=== PATIENT | female | born 1965 | race Caucasian/White ===

== ENCOUNTER 2016-12-25 13:17 | Outpatient (CLI) | payer BC, OTHER | END 2016-12-25 13:18 | disposition home or self-care (01) | DX: E04.2 Nontoxic multinodular goiter (principal); E06.3 Autoimmune thyroiditis ==

== ENCOUNTER 2016-12-28 11:21 | Outpatient (CLI) | payer BC, OTHER | END 2016-12-28 11:22 | disposition home or self-care (01) | DX: Z12.31 Encounter for screening mammogram for malignant neoplasm of breast (principal) ==

== ENCOUNTER 2018-01-30 11:37 | Outpatient (CLI) | payer BC, OTHER ==
--- NOTE | 2018-01-31 12:43 | Mammography Report ---
DIGITAL SCREENING MAMMOGRAM: 01/30/2018 CLINICAL INDICATION: A 53-year-old for screening. COMPARISON: 12/2016, 10/2015, 09/2015, 09/2014, 06/2013, 05/2012, 03/2011. TECHNIQUE: Routine CC and MLO projections were obtained of the breasts. FINDINGS: The breasts demonstrate scattered fibroglandular densities bilaterally. Coarse and punctate, typically benign calcifications are present. No suspicious masses, clustered microcalcifications, or regions of architectural distortion are identified. IMPRESSION: BENIGN FINDINGS. RECOMMENDATION: Routine annual screening unless otherwise clinically indicated. BIRADS CATEGORY 2 - BENIGN FINDINGS. STANDARD QUALIFYING STATEMENTS: 1. This examination was reviewed with the aid of Computer-Aided Detection (CAD). 2. A negative or benign imaging report should not delay biopsy if clinically suspicious findings are present. Consider surgical consultation if warranted. More than 5% of cancers are not identified by imaging. 3. Dense breasts may obscure an underlying neoplasm. TD: 01/31/2018 12:42
== END 2018-01-30 11:38 | disposition home or self-care (01) ==
LOC: DI.N 11:37
PROVIDERS: ATTEND Family Medicine
DX: Z12.31 Encounter for screening mammogram for malignant neoplasm of breast (principal)
CPT/HCPCS: 77067

== ENCOUNTER 2018-02-16 11:06 | Outpatient (CLI) | payer BC, OTHER ==
--- NOTE | 2018-02-16 19:15 | Ultrasound Report ---
EXAM: AXILLARY ULTRASOUND EXAM DATE: 02/16/2018 12:07 PM. CLINICAL HISTORY: Mass. COMPARISON: None. TECHNIQUE: Targeted imaging of the right axilla utilizing ultrasound. Certified Meeting Professional static images ac quired and reviewed. FINDINGS: No fluid collections are noted. Normal subcutaneous soft tissues are noted. No concerning m asses are present. Morphologically normal 1 cm lymph node in the right axilla with normal cortex and fatty rafal. This lymph node is in the region of the palpable finding. IMPRESSION: 1. No concerning soft tissue mass or collection. 2. Morphologically normal 1 cm right axillary node of doubtful significance. The lymph node is in the palpable finding. [facility] Referring Provider Line: [phone] SITE ID: [id number]
--- NOTE | 2018-02-17 08:03 | Ultrasound Report ---
EXAM: THYROID ULTRASOUND EXAM DATE: 02/16/2018 12:07 PM. CLINICAL HISTORY: Skye's thyroiditis. COMPARISON: 12/25/2016. TECHNIQUE: Real time sonographic imaging of the thyroid was performed by the nike athlete. Multiple re presentative static images were saved for review. FINDINGS: THYROID GLAND: Right Lobe: 4.9 x 1.1 x 1.5 cm, volume 4.2 cc. Heterogeneous parenchyma. No abnormal blood flow. Right Lobe Nodules: 1. 0.6 x 0.3 x 0.5 cm solid hypoechoic mid right thyroid nodule. No vascularity or microcalcification s. 2. 0.5 x 0.4 x 0.4 cm solid hypoechoic posterior inferior right thyroid nodule. No vascularity or eliseo rocalcifications. 3. 0.5 x 0.4 x 0.5 cm solid hypoechoic medial right mid thyroid nodule. No vascularity or microcalcif ications. Left Lobe: 5.0 x 1.6 x 1.6 cm, volume 6.7 cc. Heterogeneous parenchyma. No abnormal blood flow. Left Lobe Nodules: 1. 0.7 x 0.3 x 0.4 cm hypoechoic mid left thyroid solid nodule. No vascularity or microcalcifications . 2. Lobular 0.9 x 0.3 x 0.4 cm hypoechoic inferior left thyroid nodule. No vascularity or microcalcifi cations. Isthmus: .34 cm AP. Isthmic Nodules: None. LYMPH NODES: No adenopathy demonstrated in the central or lateral compartment. OTHER: None. IMPRESSION: Multiple hypoechoic solid and cystic bilateral thyroid nodules. Heterogeneous thyroid parenchyma in k eeping with Skye's. No concerning thyroid nodule or mass. No pathologic adenopathy. Management recommendations are based on 2015 [place] [employer] Management Guidelines for A dult Patients with Thyroid Nodules and Differentiated Thyroid Cancer. [facility] Referring Provider Line: [phone] SITE ID: [id number]
== END 2018-02-16 11:07 | disposition home or self-care (01) ==
LOC: DI 11:06
PROVIDERS: ATTEND Physician Assistant
DX: E06.3 Autoimmune thyroiditis (principal); D17.1 Benign lipomatous neoplasm of skin and subcutaneous tissue of trunk
CPT/HCPCS: 76536; 76882

== ENCOUNTER 2018-09-26 08:20 | Outpatient (CLI) | payer BC, OTHER ==
[2018-09-26 13:49] LABS: CHOL/HDL RATIO 3.6 (<4.4); CHOLESTEROL 235 mg/dL; HB2 TOTAL 14.5 g/dL; HDL CHOLESTEROL 66 mg/dL; HEMOGLOBIN A1C 0.52 g/dL; HEMOGLOBIN A1C % 5.4 % (4.6-6.2); LDL CHOLESTEROL,CALCULATED 135 mg/dL; VLDL CHOLESTEROL 34 mg/dL
== END 2018-09-26 23:59 | disposition home or self-care (01) ==
LOC: LAB.WCP 08:20
PROVIDERS: ATTEND Family Medicine
DX: E11.9 Type 2 diabetes mellitus without complications (principal); E78.5 Hyperlipidemia, unspecified
CPT/HCPCS: 36415; 80061; 83036; 83721

== ENCOUNTER 2019-03-14 08:25 | Outpatient (CLI) | payer BC, OTHER ==
--- NOTE | 2019-03-14 10:00 | Mammography Report ---
Reason: SCREENING MAMMO Procedure Date: 03/14/2019 Accession Number: [id number] / [id number] Procedure: MGN - Screening Mammo Dig Bilat CPT Code: FULL RESULT: EXAM: Screening Mammo Dig Bilat DATE: 03/14/2019 8:46 AM CLINICAL HISTORY: Screening encounter. No reported risk factors. TECHNIQUE: (B) - Bilateral CC and MLO views were obtained. COMPARISON: 01/30/2018 through 10/08/2014. PARENCHYMAL PATTERN: (A) - The breast(s) demonstrate(s) scattered fibroglandular densities. FINDINGS: There are coarse typically benign calcifications. There are no suspicious masses, calcifications, or areas of distortion. IMPRESSION: Benign findings. BI-RADS category 2. RECOMMENDATION: (ANNUAL) - Recommend routine annual screening mammography. BI-RADS CATEGORY: (2) - Benign Findings. STANDARD QUALIFYING STATEMENTS: 1. This examination was not reviewed with the aid of Computer-Aided Detection (CAD). 2. A negative or benign imaging report should not preclude biopsy if clinically suspicious findings are present. 3. Dense breasts may obscure an underlying neoplasm. 4. This examination was reviewed without the aid of 3D breast imaging (tomosynthesis).
== END 2019-03-14 08:26 | disposition home or self-care (01) ==
LOC: DI.N 08:25
DX: Z12.31 Encounter for screening mammogram for malignant neoplasm of breast (principal)
CPT/HCPCS: 77067

== ENCOUNTER 2019-05-09 07:50 | Outpatient (CLI) | payer BC, OTHER ==
[2019-05-09 12:31] LABS: BASOPHILS % (AUTO) 0.6 %; EOSINOPHILS # (AUTO) 0.2 10^3/uL (0.0-0.7); EOSINOPHILS % (AUTO) 2.9 %; HGB - HEMOGLOBIN 13.4 g/dL (12.0-16.0); LYMPHOCYTES # (AUTO) 1.7 10^3/uL (1.5-3.5); LYMPHOCYTES % (AUTO) 26.6 %; MEAN CORPUSCULAR HEMOGLOBIN 30.5 pg (27.0-31.0); MEAN CORPUSCULAR HGB CONC 32.5 g/dL (32.0-36.0); MEAN CORPUSCULAR VOLUME 93.8 fL (81.0-99.0); MEAN PLATELET VOLUME 10.3 fL (7.9-10.8); MONOCYTES # (AUTO) 0.6 10^3/uL (0.0-1.0); NEUTROPHILS # (AUTO) 3.7 10^3/uL (1.5-6.6); NEUTROPHILS % (AUTO) 59.6 %; PLT - PLATELET COUNT 355 10^3/uL (130-450); RED BLOOD COUNT 4.39 10^6/uL (4.20-5.40); RED CELL DISTRIBUTION WIDTH 12.3 % (12.0-15.0); WHITE BLOOD COUNT 6.3 x10^3/uL (4.8-10.8)
[2019-05-09 13:00] LABS: HB2 TOTAL 14.4 g/dL; HEMOGLOBIN A1C 0.56 g/dL; HEMOGLOBIN A1C % 5.7 % (4.6-6.2)
[2019-05-09 14:18] LABS: ALBUMIN 4.1 g/dL (3.2-5.5); ALBUMIN/GLOBULIN RATIO 1.2 (1.0-2.2); ALKALINE PHOSPHATASE 69 IU/L (42-121); ALT ALANINE AMINOTRANSFERASE 24 IU/L (10-60); AST ASPARTATE AMINOTRANSFERASE 22 IU/L (10-42); BILIRUBIN,TOTAL 0.8 mg/dL (0.2-1.0); BUN - BLOOD UREA NITROGEN 18 mg/dL (6-20); CALCIUM 9.9 mg/dL (8.5-10.3); CARBON DIOXIDE - CO2 26 mmol/L (21-32); CHLORIDE 105 mmol/L (101-111); CHOL/HDL RATIO 3.7 (<4.4); CHOLESTEROL 214 mg/dL; CREATININE 0.9 mg/dL (0.4-1.0); GFR - MDRD 65 (>89); GLUCOSE 98 mg/dL (70-100); HDL CHOLESTEROL 58 mg/dL; LDL CHOLESTEROL,CALCULATED 130 mg/dL; LDL/HDL RATIO 2.2 (<4.4); SODIUM 144 mmol/L (135-145); TOTAL PROTEIN 7.4 g/dL (6.7-8.2); VLDL CHOLESTEROL 26 mg/dL
== END 2019-05-09 07:51 | disposition home or self-care (01) ==
LOC: LAB.WCP 07:50
PROVIDERS: ATTEND Family Medicine
DX: E78.5 Hyperlipidemia, unspecified (principal); E11.9 Type 2 diabetes mellitus without complications; E06.3 Autoimmune thyroiditis; K21.9 Gastro-esophageal reflux disease without esophagitis
CPT/HCPCS: 36415; 80053; 80061; 83036; 83721; 84443; 85025

== ENCOUNTER 2019-06-05 16:39 | Outpatient (CLI) | payer BC, OTHER ==
--- NOTE | 2019-06-09 08:23 | Ultrasound Report ---
Reason: HASHIMOTOS THYROIDITIS Procedure Date: 06/05/2019 Accession Number: [id number] / [id number] Procedure: US - Head or Neck Soft Tissue CPT Code: FULL RESULT: EXAM: THYROID ULTRASOUND EXAM DATE: 06/05/2019 05:45 PM. CLINICAL HISTORY: HASHIMOTOS THYROIDITIS. COMPARISON: HEAD OR NECK SOFT TISSUE 02/16/2018 11:26 AM. TECHNIQUE: Real time sonographic imaging of the thyroid was performed by the historic sites registrar. Multiple pest control service representative static images were saved for review. FINDINGS: THYROID GLAND: Right Lobe: 4.2 x 1.3 x 1.2 cm, volume 3.4 cc. Normal background echotexture. Right Lobe Nodules: 1. There is a hypoechoic solid nodule in the lateral aspect of the mid to upper pole of the right lobe measuring 5 x 4 x 3 mm. 2. There is a hypoechoic solid nodule in the lateral aspect of the inferior pole of the right lobe posteriorly measuring 6 x 6 x 4 mm. 3. There is a hypoechoic solid nodule medial aspect of the superior pole of the right lobe measuring 6 x 3 x 3 mm. Left Lobe: 1.7 x 0.9 x 4.0 cm, volume 3.2 cc. Normal background echotexture. Left Lobe Nodules: 1. There is a heterogeneously hypoechoic solid nodule in the lateral last the mid-upper pole of the left lobe measuring 7 x 6 x 3 mm. 2. There is a solid hypoechoic nodule in the superior pole of the left lobe measuring 9 x 4 x 3 mm. Isthmus: 0.2 cm AP. Isthmic Nodules: None. LYMPH NODES: No adenopathy demonstrated in the central or lateral compartment. OTHER: None. IMPRESSION: 1. Bilateral subcentimeter thyroid nodules, as above, do not meet imaging criteria for biopsy recommendation. 2. No cervical lymphadenopathy. Management recommendations are based on 2015 [place] [employer] Management Guidelines for Adult Patients with Thyroid Nodules and Differentiated Thyroid Cancer. [facility]
== END 2019-06-05 16:40 | disposition home or self-care (01) ==
LOC: DI 16:39
PROVIDERS: ATTEND Family Medicine
DX: E04.2 Nontoxic multinodular goiter (principal); E06.3 Autoimmune thyroiditis
CPT/HCPCS: 76536

== ENCOUNTER 2019-12-03 17:53 | Outpatient (CLI) | payer BC, OTHER ==
--- NOTE | 2019-12-04 09:01 | Ultrasound Report ---
Reason: ABDOMINAL CRAMPS Procedure Date: 12/03/2019 Accession Number: [id number] / [id number] Procedure: US - Pelvic w/Transvaginal CPT Code: Final Report FULL RESULT: EXAM: PELVIC ULTRASOUND EXAM DATE: 12/03/2019 07:00 PM. CLINICAL HISTORY: Abdominal pelvic cramping, postcoital bleeding. Postmenopausal. COMPARISON: None. TECHNIQUE: Realtime transabdominal pelvic scan performed to identify the uterus and adnexa and as an overview of other pelvic structures, followed by transvaginal scan to provide greater detail of the uterus and adnexa, with static image documentation. FINDINGS: Uterus: 7.0 x 3.0 x 5.3 cm, volume 56 cc. Anteverted position. Normal overall size and echotexture. Masses: A left lower uterine segment subserosal fibroid measures 3.6 x 3.1 x 3.2 cm. Endometrium: 10 mm. Thickened for a postmenopausal patient. No definable focal mass identified. Some endometrial heterogeneity noted. Cervix: Unremarkable. Right Ovary: 1.6 x 0.9 x 1.2 cm, volume 0.9 cc. Normal echotexture and blood flow. Suboptimally visualized. Left Ovary: 1.3 x 0.9 x 1.0 cm, volume 0.7 cc. Normal echotexture and blood flow. Free Fluid: None. Other: None. IMPRESSION: 1. Endometrium heterogeneous and thickened to 10 mm, abnormal in a postmenopausal patient. This could represent hypertrophy or diffuse neoplasm. Biopsy and/or sonographic follow-up could be considered. 2. 3.6 cm subserosal fibroid. [facility]
== END 2019-12-03 17:54 | disposition home or self-care (01) ==
LOC: DI 17:53
PROVIDERS: ATTEND Physician Assistant Medical
DX: D25.2 Subserosal leiomyoma of uterus (principal); R93.89 Abnormal findings on diagnostic imaging of other specified body structures; Z78.0 Asymptomatic menopausal state
CPT/HCPCS: 76830; 76856

== ENCOUNTER 2019-12-24 06:09 | Day surgery (SDC) | payer BC, OTHER ==
[2019-12-24] MEDS ORDERED: LACTATED RINGERS 1,000 ML IV ONE ×2 (06:27→09:27)
[2019-12-24] MEDS ORDERED: GABAPENTIN 400 MG CAPSULE ONE (07:02)
[2019-12-24] MEDS ORDERED: CELECOXIB 100 MG CAPSULE PO ONE (07:02)
[2019-12-24] MEDS ORDERED: ACETAMINOPHEN 1,000 MG/100 ML 100 ML IV ONE (07:02)
[2019-12-24] MEDS ORDERED: LIDOCAINE 1%-EPI 1:100000 20 ML MDV ONE (07:03)
--- NOTE | 2019-12-24 07:13 | ANESTHESIA ---
Pre-Anesthesia VS, & Labs - Diagnosis thickened endometrium, post menopausal menorrhagia, sub-serosal fibroid - Procedure hysteroscopy d&c with myomectomy/polypectomy Vital Signs: Temp Pulse Resp BP Pulse Ox 36.3 C L 73 16 118/82 H 100 12/24/19 06:31 12/24/19 06:31 12/24/19 06:31 12/24/19 06:31 12/24/19 06:31 Height 5 ft 2 in Weight (kg) 67.3 kg - NPO >8 hours - Is Patient ?: No - Lab Results Current Lab Results: Laboratory Tests 12/24/19 06:52: POC Whole Bld Glucose 108 H Home Medications and Allergies Home Medications: Ambulatory Orders Cholecalciferol (Vitamin D3) [Vitamin D3] 1,000 unit PO DAILY 12/22/19 Loratadine [Claritin] 10 mg PO DAILY 12/22/19 Multivitamin [Multiple Vitamins] 1 each PO DAILY 12/22/19 Fluticasone [Flonase] 1 sprays ALISHA BID 08/06/13 Cholecalciferol (Vitamin D3) [Vitamin D3] 1,000 unit PO DAILY 12/22/19 Loratadine [Claritin] 10 mg PO DAILY 12/22/19 Multivitamin [Multiple Vitamins] 1 each PO DAILY 12/22/19 Allergies/Adverse Reactions: Allergies Allergy/AdvReac Type Severity Reaction Status Date / Time Sulfa (Sulfonamide Allergy Severe Hives Verified 08/06/13 11:55 Antibiotics) red yeast rice Allergy Rash Verified 12/22/19 10:13 Anes History & Medical History - Anesthetic History Anesthesia Complications: reports: No previous complications - Medical History Cardiovascular: reports: High cholesterol Pulmonary: reports: None Gastrointestinal: reports: GERD (poorly controlled, frequent heart burn), Ulcers, Hiatal hernia Urinary: reports: Incontinence Neuro: reports: None Musculoskeletal: reports: None Endocrine/Autoimmune: reports: Type 2 diabetes (controlled with diet), Other (s/p hashimotos) Blood Disorders: reports: None Skin: reports: None Smoking Status: Never smoker Psychosocial: reports: Alcohol (2 drinks per week) - Surgical History General: Cholecystectomy, Colonoscopy, EGD Eyes Ears Nose Throat (EENT): Tonsil/Adenoidectomy, Other (sinus) Exam General: Alert, Oriented x3, Cooperative, No acute distress Dental: WNL Mouth Openin Fingerbreadth Mallampati classification: III Thyromental Distance: greater than 6 cm Respiratory: Lungs clear, Normal breath sounds, No respiratory distress, No accessory muscle use Cardiovascular: Regular rate, Normal S1, Normal S2, No murmurs Mental/Cognitive Status: Alert/Oriented X3, Normal for patient Plan Anesthesia Type: General Consent for Procedure(s) Verified and Reviewed: Yes Code Status: Attempt Resuscitation ASA classification: 2-Mild systemic disease Is this case an emergency?: No
[2019-12-24 07:24] LABS: BASOPHILS % (AUTO) 0.5 %; EOSINOPHILS # (AUTO) 0.3 10^3/uL (0.0-0.7); EOSINOPHILS % (AUTO) 3.9 %; HGB - HEMOGLOBIN 13.8 g/dL (12.0-16.0); LYMPHOCYTES # (AUTO) 1.9 10^3/uL (1.5-3.5); LYMPHOCYTES % (AUTO) 25.2 %; MEAN CORPUSCULAR HEMOGLOBIN 30.5 pg (27.0-31.0); MEAN CORPUSCULAR HGB CONC 32.9 g/dL (32.0-36.0); MEAN CORPUSCULAR VOLUME 92.5 fL (81.0-99.0); MEAN PLATELET VOLUME 9.8 fL (7.9-10.8); MONOCYTES # (AUTO) 0.7 10^3/uL (0.0-1.0); MONOCYTES % (AUTO) 9.3 %; NEUTROPHILS # (AUTO) 4.5 10^3/uL (1.5-6.6); NEUTROPHILS % (AUTO) 60.7 %; PLT - PLATELET COUNT 347 10^3/uL (130-450); RED BLOOD COUNT 4.53 10^6/uL (4.20-5.40); RED CELL DISTRIBUTION WIDTH 12.5 % (12.0-15.0); WHITE BLOOD COUNT 7.4 x10^3/uL (4.8-10.8)
[2019-12-24 07:29] LABS: ALBUMIN 3.9 g/dL (3.2-5.5); ALBUMIN/GLOBULIN RATIO 1.1 (1.0-2.2); BILIRUBIN,TOTAL 0.7 mg/dL (0.2-1.0); CALCIUM 9.5 mg/dL (8.5-10.3); CREATININE 0.8 mg/dL (0.4-1.0); TOTAL PROTEIN 7.6 g/dL (6.7-8.2)
--- NOTE | 2019-12-24 07:30 | HISTORY & PHYSICAL EXAMINATION ---
HPI - History of Present Illness HPI Comment/Other: CC: Annual exam HPI: patient is here to see Dr Izaguirre for endotemrium thickening. patient had US done with LETICIA butler ..... ..............................................................Batsheva Ambrose PACHECO Grimaldo December 18, 2019 4:00 PM Patient is a 54 yo postmenopausal female here for thickened endometrium. Patient reports that she has been having some postcoital bleeding as well as cramping consistent with menstrual crmaping prior to menopause. Not on hormone replacement therapy. Also noted some breast tenderness. No change in abdominal girth, appetite, bladder or bowel habits. Had pelvic us that showed a 10 mm EMS. PMH s/f Hashimotos thyroiditis PSH: cholecystectomy Allergies: SEPTRA (Critical) ERYTHROMYCIN (Critical) SULFA (Critical) * RED YEAST RICE (Critical) * SEASONAL ALLERGIES (Critical) PRAVACHOL (Moderate) Medications: MULTIVITAMINS ORAL CAPSULE (MULTIPLE VITAMIN) Take one capsule by mouth once daily; Route: ORAL CLARITIN 10 MG ORAL TABLET (LORATADINE) Take one tablet by mouth daily. VITAMIN D 1000 UNIT ORAL TABLET (CHOLECALCIFEROL) Take four tablets by mouth daily for vit D deficiency FLUTICASONE PROPIONATE 50 MCG/ACT NASAL SUSPENSION (FLUTICASONE PROPIONATE) Use one spray each nostril twice daily; Route: NASAL Problems: Thickened endometrium (ICD-793.5) (ATO06-U93.00) Menorrhagia, postmenopausal (ICD-627.1) (KWI30-I23.0) Stress incontinence (ICD-625.6) (HLR57-O85.3) Abdominal cramps (ICD-789.00) (UGK76-K57.9) Neoplasm, skin, uncertain behavior (ICD-238.2) (FGM98-J33.5) Lipoma (ICD-214.9) (LTY46-O55.9) Skin tag (ICD-701.9) (ERH96-E26.8) Menopause-related vasomotor symptoms, hot flashes (ICD-627.2) (FJK92-R82.1) Preventative health care (ICD-V70.0) (WIA94-J62.00) DIABETES MELLITUS (ICD-250.00) (ZCS00-T86.9) Hyperlipidemia (ICD-272.4) (VHC88-H57.5) GERD (ICD-530.81) (BEX91-C94.9) DONATO'S ESOPHAGUS (ICD-530.85) (IHI71-I44.70) HIATAL HERNIA (ICD-553.3) (XHX03-B28.9) ECZEMA NOS (ICD-692.9) (HNP90-T55.9) VITAMIN D DEFICIENCY (ICD-268.9) (JAF69-I33.9) OBESITY NOS (ICD-278.00) (PRC95-V92.9) OBSTRUCTIVE SLEEP APNEA (ICD-780.57) (RZS26-M80.30) DIAMOND'S THYROIDITIS (ICD-245.2) (ZGR71-O62.3) SINUSITIS, CHRONIC NOS (ICD-473.9) (FHV47-N54.9) ALLERGIC RHINITIS, SEASONAL (ICD-477.0) (DVV44-Q52.2) FAMILY HISTORY CORONARY HEART DISEASE MALE < 55 (ICD-V17.3) (TMT05-S37.49) Screening for breast cancer (ICD-V76.10) (QRL99-Q36.9) Family History Summary: Family History of Stroke/CVA for Father - Entered On: 12/23/2019 Family History of OK male <55 for Father - Entered On: 12/23/2019 Family History of Diabetes for Father - Entered On: 12/23/2019 Family History of Asthma for Daughter - Entered On: 12/23/2019 Family History Reviewed: 12/18/2019 Family History of Diabetes for Father - Entered On: 12/23/2019 Family History of [place] male <55 for Father - Entered On: 12/23/2019 Family History of Stroke/CVA for Father - Entered On: 12/23/2019 Family History of a Hx of Heart Disease for Father - Entered On: 03/09/2015 Family History of Asthma for Daughter - Entered On: 12/23/2019 Risk Factors: Smoked Tobacco Use: Never smoker Smokeless Tobacco Use: Never Passive Smoke Exposure: no HIV High Risk Behavior: no Caffeine Use: 1 drinks per day Exercise: yes Times/wk: 3 Type of Exercise: walking, gym Seatbelt Use: 100 % Sun Exposure: occasionally Alcohol Use: yes Type: wine Drinks per day: <1 Drug Use: no Vital Signs: Patient Profile: 54 Years Old Female Height: 61.5 inches Weight: 147.2 pounds BMI: 27.46 BP sittin / 75 Pt. in pain? no Vitals Entered By: Batsheva Grimaldo LPN (December 18, 2019 4:00 PM) Meds Reviewed: Done Allergies Reviewed: Done Past Medical History: Reviewed and updated today: Seasonal allergies Sulfa allergy esophagus hernia GERD Ovarian Cysts Past Surgical History: Reviewed and updated today: Laparoscopies (gallbladder) sinus surgery OB Initial Intake Information Race: White Marital status: Past History # 1 Delivery date: 01/29/1984 Delivery type: # 2 Delivery date: 02/02/1990 Delivery type: FISH INSPECTOR Review of Systems General: Denies fevers, chills, fatigue, weakness, weight loss, sleep problems, diarrhea, constipation, hot flashes, night sweats. Eyes: Denies change in vision,blurred vision,sensitive to light,eye pain. Ears/Nose/Throat: Denies earache, ringing in ears, loss of hearing, cough, sorethroat, sinusitis, nasal congestion, dizziness. Cardiovascular: Denies slow heart beat, swelling, pounding in chest, chest pain, fast heart rate, passing out. Respiratory: Denies wheezing, painful breathing, chronic cough, sputum, shortness of breath. Gastrointestinal: Denies nausea, vomiting, heartburn, indigestion, diarrhea, constipation, change in bowel habits, abdominal pain, flatulence, blood in stool, hemorrhoids. Genitourinary: Denies vaginal odor, itching,discharge, loss of urine, painful urination, blood in urine, abscence of periods, painful periods, heavy bleeding, painful sex, abdominal pain, pelvic pain, postmenopausal bleeding. Musculoskeletal: Denies back pain, leg pain, arm pain, muscle pain. Skin: Denies rash, itching, swelling, hair loss, increased hair growth, acne, dry skin, change in mole size or color. Neurologic: Denies seizures, dizziness, headaches, fainting, loss of sensation, change in speech, loss of memory. Psychiatric: Denies depression, anxiety, irritability, panic attacks, change in mood, crying episodes, difficulty in sleeping, lack of energy, sleeping too mu ch, decreased appetite. Endocrine: Complains of heat intolerance, increased fluid intake. Denies cold intolerance, unusual weight change, increased urination, frequent yeast infe ctions, frequent urinary tract infections. Heme/Lymphatic: Denies abnormal bruising, bleeding gums brushing teeth, lymph node enlargement, history of blood transfusions, heat or cold intolerance. Breast: Denies breast mass,redness of breast,breast pain, nipple pain,nipple discharge,bloody discharge from nipple,breast lump. ROS Comments: As per HPI, otherwise remaining systems are negative. Flowsheet View for Follow-up Visit Weight: 147.2 Blood pressure: 125 / 75 Physical Constitutional: alert, no acute distress, well hydrated. Skin: normal turgor, normal color, no rashes. Head: atraumatic, normocephalic. Cardiovascular: RRR, no murmurs. Respiratory: no respiratory distress, clear to auscultation. Abdomen: nondistended, nontender, no guarding. Neurologic: normal. Psych: affect and mood appropriate, normal interaction, good eye contact. Impression & Recommendations: Problem # 1: Thickened endometrium (ICD-793.5) (NVF46-Y42.00) Orders: 71131 OV Est Detailed (CPT-27145) Reviewed the etiology and implication of a thickened endometrium in post menopausal period. Reviewed that sampling is indicated Reviewed pros and cons of EMB vs hysteroscopy and the limited utility of EMB is sampling polyps Patient want to proceed with hysteroscopy D&C We reviewef R/B/A, includin gbut no limited to infection, bleeding, and damage to nearby tissue and organs, most significantly uterine perforation. Consents were signed. Will proceed to OR for hysteroscopy D&C with possible polypectomy/myomectomy This visit lasted at least 30 minutes with greater than 50% of the time devoted to face to face case management discussion between the provider and the patient. Patient Portal: [id number] PMH/PSH - Past Medical History Cardiovascular: positive: High cholesterol Respiratory: positive: None Neuro: positive: None Endocrine/Autoimmune: positive: Type 2 diabetes (controlled with diet), Other (s/p hashimotos) GI: positive: GERD (poorly controlled, frequent heart burn), Ulcers, Hiatal hernia : positive: Incontinence HEENT: positive: Chronic vision loss, Chronic sinusitis Psych: positive: None Musculoskeletal: positive: None Derm: positive: None MRSA Hx?: No - Past Surgical History General: positive: Cholecystectomy, Colonoscopy, EGD HEENT: positive: Tonsil/Adenoidectomy, Other (sinus) Social & Family Hx - Social History Smoking Status: Never smoker Meds/Allgy - Home Medications Home Medications: Ambulatory Orders Medication Instructions Recorded Confirmed Fluticasone [Flonase] 1 sprays ALISHA BID 08/06/13 12/24/19 Cholecalciferol (Vitamin D3) 1,000 unit PO DAILY 12/22/19 12/22/19 [Vitamin D3] Loratadine [Claritin] 10 mg PO DAILY 12/22/19 12/22/19 Multivitamin [Multiple Vitamins] 1 each PO DAILY 12/22/19 12/22/19 - Allergies Allergies/Adverse Reactions: Allergies Allergy/AdvReac Type Severity Reaction Status Date / Time Sulfa (Sulfonamide Allergy Severe Hives Verified 08/06/13 11:55 Antibiotics) red yeast rice Allergy Rash Verified 12/22/19 10:13 Exam - Vital Signs Vital Signs: Vital Signs x48h Temp Pulse Resp BP Pulse Ox 12/24/19 06:31 97.3 F L 73 16 118/82 H 100 Results - Lab Results Fish Bones: 12/24/19 06:47 12/24/19 06:47 Other Lab Results: Lab Results x24hrs 12/24/19 12/24/19 12/24/19 Range/Units 06:52 06:47 06:47 WBC 7.4 (4.8-10.8) x10^3/uL RBC 4.53 (4.20-5.40) 10^6/uL Hgb 13.8 (12.0-16.0) g/dL Hct 41.9 (37.0-47.0) % MCV 92.5 (81.0-99.0) fL MCH 30.5 (27.0-31.0) pg MCHC 32.9 (32.0-36.0) g/dL RDW 12.5 (12.0-15.0) % Plt Count 347 (130-450) 10^3/uL MPV 9.8 (7.9-10.8) fL Neut # (Auto) 4.5 (1.5-6.6) 10^3/uL Lymph # (Auto) 1.9 (1.5-3.5) 10^3/uL [place] # (Auto) 0.7 (0.0-1.0) 10^3/uL Eos # (Auto) 0.3 (0.0-0.7) 10^3/uL Baso # (Auto) 0.0 (0.0-0.1) 10^3/uL Absolute Nucleated RBC 0.00 x10^3/uL Nucleated RBC % 0.0 /100WBC Sodium 142 (135-145) mmol/L Potassium 4.0 (3.5-5.0) mmol/L Chloride 104 (101-111) mmol/L Carbon Dioxide 27 (21-32) mmol/L Anion Gap 11.0 (6-13) BUN 17 (6-20) mg/dL Creatinine 0.8 (0.4-1.0) mg/dL Estimated GFR (MDRD) 74 L (>89) Glucose 110 H (70-100) mg/dL POC Whole Bld Glucose 108 H (70 - 100) mg/dL Calcium 9.5 (8.5-10.3) mg/dL Total Bilirubin 0.7 (0.2-1.0) mg/dL AST 18 (10-42) IU/L ALT 17 (10-60) IU/L Alkaline Phosphatase 55 (42-121) IU/L Total Protein 7.6 (6.7-8.2) g/dL Albumin 3.9 (3.2-5.5) g/dL Globulin 3.7 (2.1-4.2) g/dL Albumin/Globulin Ratio 1.1 (1.0-2.2)
[2019-12-24] MEDS ORDERED: LIDOCAINE 1%-EPI 1:100000 20 ML MDV SUBQ ONE (09:09)
--- NOTE | 2019-12-24 09:56 | OPERATIVE REPORT ---
Operative Report - General Procedure Date: 12/24/19 Planned Procedure: Hysteroscopy D&C with possible polypectomy/myomectomy Pre-Op Diagnosis: 1) postmenopausal bleeding Procedure Performed: Hysteroscopy D&C with MyoSure polypectomy Post Op Diagnosis: Same and intrauterine polyp - Procedure Note Primary Surgeon: Chaparrita Izaguirre MD Anesthesia Provider: Myrna Chen CRNA Anesthesia Technique: General LMA Pathology: uterine contents IV Fluids (mL): 400 Estimated Blood Loss (mL): 5 Urine Output (mL): 200 (in and out catheterization) Indications: Postmenopausal bleeding with endometrial stripe of 10 mm on pelvic us Findings: Large intrauterine polyp extending into the endocervical canal. Otherwise, normal uterine cavity with bilateral tubal ostia noted Complications: none - Other Other Information/Narrative: Risks benefits and alternatives to the procedure were reviewed. Consent was again confirmed. Patient was taken to the operating room where she underwent general anesthesia. She was positioned in dorsolithotomy position with legs resting in yellowfin stirrups. She was prepped and draped in the usual sterile fashion. Preoperative antibiotics were not indicated. Preoperative checklist was performed. Exam under anesthesia was performed. Speculum was placed in the vagina and the cervix was visualized. Single-tooth tenaculum was placed at the anterior cervical lip. Paracervical block was administered using a total of 24 cc of 1% lidocaine with epinephrine was injected at the 4:00 and 8:00 positions lateral to the portio of the cervix. The cervical os was serially dilated with Hegar dilators to accommodate the caliber of the diagnostic hysteroscope. The hysteroscope was inserted and findings were noted as above. The hysteroscopic morcellator was inserted through the operative port. The intrauterine polyps were morcellated under direct visualization. Uterine cavity was smooth at close of the procedure. Hysteroscope was removed. Sharp curettage D&C was performed with sharp curettage. All instruments were removed from the uterus. Tenaculum was removed. Tenaculum sites were noted to be hemostatic. All instruments were removed from the vagina. Procedure was well-tolerated without complication. Fluid deficit: 325
[2019-12-24] MEDS ORDERED: oxyCODONE 5 MG TABLET PO PRN (09:57)
[2019-12-24 10:19] VITALS: BP 103/68
== END 2019-12-24 06:10 | disposition home or self-care (01) ==
LOC: SDS 06:09
PROVIDERS: ATTEND Obstetrics & Gynecology
PROC: 0UDB7ZZ Extraction of Endometrium, Via Natural or Artificial Opening (ICD-10-PCS; 2019-12-24)
PROC: 0UB98ZZ Excision of Uterus, Via Natural or Artificial Opening Endoscopic (ICD-10-PCS; principal; 2019-12-24 07:30)
DX: N84.0 Polyp of corpus uteri (principal)
CPT/HCPCS: 58558; 80053; 85025; A9270; J0131; J7120

== ENCOUNTER 2020-05-25 07:56 | Outpatient (CLI) | payer BC, OTHER ==
[2020-05-25 12:50] LABS: ALBUMIN 4.1 g/dL (3.2-5.5); ALBUMIN/GLOBULIN RATIO 1.2 (1.0-2.2); ALKALINE PHOSPHATASE 67 IU/L (42-121); ALT ALANINE AMINOTRANSFERASE 23 IU/L (10-60); AST ASPARTATE AMINOTRANSFERASE 19 IU/L (10-42); BILIRUBIN,TOTAL 0.5 mg/dL (0.2-1.0); BUN - BLOOD UREA NITROGEN 16 mg/dL (6-20); CALCIUM 9.6 mg/dL (8.5-10.3); CARBON DIOXIDE - CO2 28 mmol/L (21-32); CHLORIDE 104 mmol/L (101-111); CHOL/HDL RATIO 4.3 (<4.4); CHOLESTEROL 263 mg/dL; CREATININE 0.9 mg/dL (0.4-1.0); GLUCOSE 106 mg/dL (70-100); HDL CHOLESTEROL 61 mg/dL; LDL CHOLESTEROL,CALCULATED 158 mg/dL; LDL/HDL RATIO 2.6 (<4.4); SODIUM 140 mmol/L (135-145); TOTAL PROTEIN 7.4 g/dL (6.7-8.2); VLDL CHOLESTEROL 44 mg/dL
[2020-05-25 12:52] LABS: BASOPHILS % (AUTO) 0.6 %; EOSINOPHILS # (AUTO) 0.2 10^3/uL (0.0-0.7); EOSINOPHILS % (AUTO) 2.8 %; HGB - HEMOGLOBIN 13.5 g/dL (12.0-16.0); LYMPHOCYTES # (AUTO) 1.9 10^3/uL (1.5-3.5); LYMPHOCYTES % (AUTO) 26.5 %; MEAN CORPUSCULAR HEMOGLOBIN 30.3 pg (27.0-31.0); MEAN CORPUSCULAR HGB CONC 32.3 g/dL (32.0-36.0); MEAN CORPUSCULAR VOLUME 93.9 fL (81.0-99.0); MEAN PLATELET VOLUME 10.1 fL (7.9-10.8); MONOCYTES # (AUTO) 0.7 10^3/uL (0.0-1.0); MONOCYTES % (AUTO) 9.3 %; NEUTROPHILS # (AUTO) 4.3 10^3/uL (1.5-6.6); NEUTROPHILS % (AUTO) 60.5 %; PLT - PLATELET COUNT 369 10^3/uL (130-450); RED BLOOD COUNT 4.45 10^6/uL (4.20-5.40); RED CELL DISTRIBUTION WIDTH 12.3 % (12.0-15.0); WHITE BLOOD COUNT 7.1 x10^3/uL (4.8-10.8)
[2020-05-25 12:57] LABS: CREATININE,URINE 327.5 mg/dL; MICROALBUM/CREATININE RATIO,UR 6.1 ug/mg (<30.0)
[2020-05-25 13:12] LABS: HB2 TOTAL 14.4 g/dL; HEMOGLOBIN A1C 0.53 g/dL; HEMOGLOBIN A1C % 5.5 % (4.6-6.2)
== END 2020-05-25 23:59 | disposition home or self-care (01) ==
LOC: LAB.WCP 07:56
PROVIDERS: ATTEND Physician Assistant Medical
DX: E78.5 Hyperlipidemia, unspecified (principal); E11.9 Type 2 diabetes mellitus without complications; K21.9 Gastro-esophageal reflux disease without esophagitis
CPT/HCPCS: 36415; 80053; 80061; 82043; 82570; 83036; 83721; 84443; 85025

== ENCOUNTER 2020-06-21 13:14 | Outpatient (CLI) | payer BC, OTHER ==
--- NOTE | 2020-06-22 09:44 | Mammography Report ---
BILATERAL DIGITAL SCREENING MAMMOGRAM 3D/2D: 06/21/2020 CLINICAL: Routine screening. Comparison is made to exams dated: 03/14/2019 mammogram, 01/30/2018 mammogram, and 12/28/2016 mammogram - [facility]. There are scattered fibroglandular elements in both breasts. No significant masses, calcifications, or other findings are seen in either breast. There has been no significant interval change. IMPRESSION: NEGATIVE There is no mammographic evidence of malignancy. A 1 year screening mammogram is recommended. This exam was interpreted at Station ID: [id number]. NOTE: For mammograms, a report in lay terms will be sent to the patient. Approximately 15% of breast malignancies will not be visualized mammographically. In the management of a palpable breast mass, a negative mammogram must not discourage biopsy of a clinically suspicious lesion. Electronically Signed By: Jose D Bocanegra M.D. ddp/penrad:06/21/2020 17:15:32 ACR BI-RADS Category 1: Negative 3341F PARENCHYMAL PATTERN: (A) - The breast(s) demonstrate(s) scattered fibroglandular densities. BI-RADS CATEGORY: (1) - 1 RECOMMENDATION: (ANNUAL) - Recommend routine annual screening mammography. [id number] 1 year screening LATERALITY: (B)
== END 2020-06-21 13:15 | disposition home or self-care (01) ==
LOC: DI.N 13:14
DX: Z12.31 Encounter for screening mammogram for malignant neoplasm of breast (principal)
CPT/HCPCS: 77063; 77067

== ENCOUNTER 2020-07-07 15:49 | Outpatient (CLI) | payer BC, OTHER ==
--- NOTE | 2020-07-08 09:40 | Ultrasound Report ---
PROCEDURE: Pelvic w/Transvaginal INDICATIONS: PELVIC PAIN TECHNIQUE: Real-time scanning was performed of the pelvic organs, with image documentation. Additional endovagi nal scanning was necessary due to incomplete visualization of the adnexal and endometrial structures by transabdominal scanning. COMPARISON: 12/03/2019 FINDINGS: Transabdominal scanning: No pathologic free abdominal or pelvic fluid. No suspicious adnexal mass. The right kidney appears normal. The left kidney demonstrates a lobulated mid and lower pole contour . Endovaginal scanning: Uterus: Uterus is vertically oriented and normal in size at 7.3 x 3.2 x 4.6 cm. The left posterior lower uterine segment subserosal mass measures approximately 2.6 x 1.9 x 2.0 cm. No increased vascula rity. The endometrium is not well-defined. The structure believed to be the endometrium Measures abou t 6 mm in combined thickness. Ovaries: The left ovary was not identified. The right ovary measures 0.7 x 0.8 x 0.9 cm. IMPRESSION: 1. Due to uterine position, the endometrial stripe was difficult to identify. It appears indistinct. This may be the result of D&C or endometrial ablation. 2. Left posterior lower uterine segment fibroid is smaller, potentially partially removed as reported . 3. Normal right ovary and nonvisualized left ovary, appropriate for the patient's age. Reviewed by: Angie Steve MD on 07/08/2020 9:38 AM PDT Approved by: Angie Steve MD on 07/08/2020 9:38 AM PDT Station ID: [id number]
== END 2020-07-07 15:50 | disposition home or self-care (01) ==
LOC: DI 15:49
PROVIDERS: ATTEND Obstetrics & Gynecology
DX: D25.2 Subserosal leiomyoma of uterus (principal)
CPT/HCPCS: 76830; 76856

== ENCOUNTER 2020-08-26 11:42 | Day surgery (SDC) | payer BC, OTHER ==
[2020-08-26] MEDS ORDERED: fentaNYL 250 MCG/5 ML VIAL IVP ONE (11:43)
[2020-08-26] MEDS ORDERED: MIDAZOLAM 2 MG/2 ML VIAL IVP ONE (11:43)
[2020-08-26] MEDS ORDERED: LACTATED RINGERS 1,000 ML IV ONE ×2 (12:08→13:59)
[2020-08-26 14:44] VITALS: BP 100/75
== END 2020-08-26 11:43 | disposition home or self-care (01) ==
LOC: SDS 11:42
PROVIDERS: ATTEND Surgery
DX: Z12.11 Encounter for screening for malignant neoplasm of colon (principal); K57.30 Diverticulosis of large intestine without perforation or abscess without bleeding; K21.9 Gastro-esophageal reflux disease without esophagitis; K44.9 Diaphragmatic hernia without obstruction or gangrene; K22.70 Barrett's esophagus without dysplasia
CPT/HCPCS: 45378; J3010; J7120

== ENCOUNTER 2020-09-24 07:45 | Outpatient (CLI) | payer BC, OTHER | END 2020-09-24 07:46 | disposition home or self-care (01) | LOC: LAB 07:45 | PROVIDERS: ATTEND Obstetrics & Gynecology | DX: Z01.812 Encounter for preprocedural laboratory examination (principal); R10.2 Pelvic and perineal pain; N81.2 Incomplete uterovaginal prolapse; Z20.828 Contact with and (suspected) exposure to other viral communicable diseases ==

== ENCOUNTER 2020-09-26 08:39 | Outpatient (CLI) | payer BC, OTHER ==
[2020-09-26 09:32] LABS: BASOPHILS # (AUTO) 0.1 10^3/uL (0.0-0.1); BASOPHILS % (AUTO) 0.8 %; EOSINOPHILS # (AUTO) 0.3 10^3/uL (0.0-0.7); EOSINOPHILS % (AUTO) 4.8 %; HGB - HEMOGLOBIN 13.3 g/dL (12.0-16.0); LYMPHOCYTES # (AUTO) 1.7 10^3/uL (1.5-3.5); LYMPHOCYTES % (AUTO) 26.6 %; MEAN CORPUSCULAR HGB CONC 32.8 g/dL (32.0-36.0); MEAN CORPUSCULAR VOLUME 91.6 fL (81.0-99.0); MEAN PLATELET VOLUME 9.7 fL (7.9-10.8); MONOCYTES # (AUTO) 0.5 10^3/uL (0.0-1.0); MONOCYTES % (AUTO) 8.3 %; NEUTROPHILS # (AUTO) 3.7 10^3/uL (1.5-6.6); NEUTROPHILS % (AUTO) 59.3 %; PLT - PLATELET COUNT 352 10^3/uL (130-450); RED BLOOD COUNT 4.43 10^6/uL (4.20-5.40); RED CELL DISTRIBUTION WIDTH 12.1 % (12.0-15.0); WHITE BLOOD COUNT 6.3 x10^3/uL (4.8-10.8)
== END 2020-09-26 08:40 | disposition home or self-care (01) ==
LOC: LAB 08:39
PROVIDERS: ATTEND Obstetrics & Gynecology
DX: Z01.812 Encounter for preprocedural laboratory examination (principal); R10.2 Pelvic and perineal pain; N81.2 Incomplete uterovaginal prolapse
CPT/HCPCS: 36415; 85025; 86850; 86900; 86901

== ENCOUNTER 2020-09-29 09:48 | Day surgery (SDC) | payer BC, OTHER ==
[~2020-09-29 09:48] MED LIST: ACETAMINOPHEN 1,000 MG/100 ML 100 ML IV ONE; CEFAZOLIN SODIUM IN 0.9 % NACL 2 GM/100 ML BAG IV ONE; CELECOXIB 100 MG CAPSULE PO ONE; GABAPENTIN 400 MG CAPSULE ONE; PHENAZOPYRIDINE 100 MG TABLET PO ONE
[2020-09-29] MEDS ORDERED: ePHEDrine 50 MG/ML VIAL IVP ONE (09:49)
[2020-09-29] MEDS ORDERED: fentaNYL 100 MCG/2 ML VIAL IVP ONE (09:49)
[2020-09-29] MEDS ORDERED: ONDANSETRON 4 MG/2 ML VIAL IVP ONE (09:49)
[2020-09-29] MEDS ORDERED: LIDOCAINE-MPF 2% 5 ML VIAL IM ONE (09:49)
[2020-09-29] MEDS ORDERED: HYDROmorphone 1 MG/ML CARPUJECT IVP ONE (09:49)
[2020-09-29] MEDS ORDERED: PROPOFOL 200 MG/20 ML VIAL IVP ONE (09:49)
[2020-09-29] MEDS ORDERED: ROCURONIUM 50 MG/5 ML VIAL IVP ONE (09:49)
[2020-09-29] MEDS ORDERED: DEXAMETHASONE 4 MG/ML VIAL IVP ONE (09:49)
[2020-09-29] MEDS ORDERED: LACTATED RINGERS 1,000 ML IV ONE ×2 (09:55→18:23)
[2020-09-29] MEDS ORDERED: LACTATED RINGERS 1,000 ML IV SCH (11:00)
[2020-09-29] MEDS ORDERED: fentaNYL 100 MCG/2 ML VIAL IVP PRN (11:00)
[2020-09-29] MEDS ORDERED: ePHEDrine 50 MG/ML VIAL IVP PRN (11:00)
[2020-09-29] MEDS ORDERED: ATROPINE ABBOJECT 1 MG/10 ML SYRINGE IVP PRN (11:00)
[2020-09-29] MEDS ORDERED: NALOXONE 0.4 MG/ML VIAL IVP PRN (11:00)
[2020-09-29] MEDS ORDERED: ONDANSETRON 4 MG/2 ML VIAL IVP PRN (11:00)
[2020-09-29] MEDS ORDERED: MORPHINE 2 MG/ML CARPUJECT IVP PRN (11:00)
[2020-09-29] MEDS ORDERED: HYDROmorphone 0.5 MG/0.5 ML SYRINGE IVP PRN (11:00)
[2020-09-29] MEDS ORDERED: METOCLOPRAMIDE 10 MG/2 ML VIAL IVP PRN (11:00)
--- NOTE | 2020-09-29 11:01 | ANESTHESIA ---
Pre-Anesthesia VS, & Labs - Diagnosis pelvic pain, cystocele with incomplete uterine prolapse - Procedure Total Vaginal Hysterectomy,cystoscopy, Anterior posterior repair, colphorrapy Vital Signs: Temp Pulse Resp BP Pulse Ox 36.2 C L 92 16 141/93 H 100 09/29/20 10:00 09/29/20 10:00 09/29/20 10:00 09/29/20 10:00 09/29/20 10:00 Height: 5 ft 2 in Weight (kg): 71 kg Body Mass Index: 28.6 BMI Classification: Overweight - NPO >8 hours - Is Patient ?: No - Lab Results Current Lab Results: Laboratory Tests 09/29/20 10:24: POC Whole Bld Glucose 97 Lab results reviewed: Yes Home Medications and Allergies Fluticasone [Flonase] 1 sprays ALISHA BID 08/06/13 Cholecalciferol (Vitamin D3) [Vitamin D3] 1,000 unit PO DAILY 12/22/19 Multivitamin [Multiple Vitamins] 2 each PO DAILY 12/22/19 Ascorbic Acid [Vitamin C] 250 mg PO DAILY 05/31/20 Fexofenadine HCl [Jacinta Allergy] 180 mg PO DAILY 05/31/20 Allergies/Adverse Reactions: Allergies Allergy/AdvReac Type Severity Reaction Status Date / Time Sulfa (Sulfonamide Allergy Severe Hives Verified 09/29/20 10:20 Antibiotics) erythromycin base Allergy Rash Verified 09/29/20 10:20 pravastatin [From Pravachol] Allergy Rash Verified 09/29/20 10:20 red yeast rice Allergy Rash Verified 09/29/20 10:20 sulfamethoxazole Allergy Rash Verified 09/29/20 10:20 [From Septra] trimethoprim [From Septra] Allergy Rash Verified 09/29/20 10:20 Anes History & Medical History - Anesthetic History Anesthesia Complications: reports: No previous complications Family history of Anesthesia Complications: Denies Family history of Malignant Hyperthermia: Denies - Medical History Cardiovascular: reports: High cholesterol Pulmonary: reports: None Gastrointestinal: reports: GERD, Ulcers, Hiatal hernia Urinary: reports: None Neuro: reports: None Musculoskeletal: reports: None Endocrine/Autoimmune: reports: Other Blood Disorders: reports: None Skin: reports: None Smoking Status: Never smoker - Surgical History General: Cholecystectomy, Colonoscopy, EGD Eyes Ears Nose Throat (EENT): Other Gynecologic: Other Exam General: Alert, Oriented x3, Cooperative, No acute distress Dental: WNL Mouth Openin Fingerbreadth Neck Mobility: Normal Mallampati classification: II Respiratory: Lungs clear, Normal breath sounds, No respiratory distress, No accessory muscle use Cardiovascular: Regular rate, Normal S1, Normal S2, No murmurs Plan Anesthesia Type: General Consent for Procedure(s) Verified and Reviewed: Yes Code Status: Attempt Resuscitation ASA classification: 2-Mild systemic disease Is this case an emergency?: No
[2020-09-29] MEDS ORDERED: SCOPOLAMINE PATCH TOP ONE (11:09)
[2020-09-29] MEDS ORDERED: SCOPOLAMINE PATCH TOP SCH (12:00)
[2020-09-29] MEDS ORDERED: METHYLENE BLUE 0.5% 50 MG/10 ML AMPULE ONE (14:04)
[2020-09-29] MEDS ORDERED: BUPIVACAINE 0.25%-EPI 1:200000 PF 30 ML VIAL ONE (14:04)
[2020-09-29] MEDS ORDERED: ESTROGENS, CONJUGATED CREAM 30 GM TUBE ONE (14:04)
[2020-09-29] MEDS ORDERED: VASOPRESSIN 20 UNIT/ML VIAL ONE ×3 (14:05→14:25)
[2020-09-29] MEDS ORDERED: LIDOCAINE 1%-EPI 1:100000 20 ML MDV ONE (14:06)
[2020-09-29] MEDS ORDERED: BUPIVACAINE 0.25%-EPI 1:200000 PF 30 ML VIAL SUBQ ONE (16:05)
[2020-09-29] MEDS ORDERED: METHYLENE BLUE 0.5% 50 MG/10 ML AMPULE IR ONE (16:17)
[2020-09-29] MEDS ORDERED: VASOPRESSIN 20 UNIT/ML VIAL IVP ONE ×3 (16:19)
[2020-09-29] MEDS ORDERED: ESTROGENS, CONJUGATED CREAM 30 GM TUBE VG ONE (17:25)
[2020-09-29] MEDS ORDERED: LIDOCAINE 2% URO-JET 5 ML SYRINGE UR ONE ×2 (17:31→17:39)
[2020-09-29] MEDS ORDERED: LIDOCAINE JELLY 2% 6 ML JEL.PF.APP ONE ×2 (17:38)
[2020-09-29] MEDS ORDERED: SIMETHICONE CHEW 80 MG TABLET PO PRN (18:23)
[2020-09-29] MEDS ORDERED: oxyCODONE 5 MG TABLET PO PRN (18:23)
[2020-09-29] MEDS ORDERED: SCOPOLAMINE PATCH TOP PRN (18:23)
[2020-09-29] MEDS ORDERED: HYDROmorphone 1 MG/ML CARPUJECT IVP PRN (18:23)
[2020-09-29] MEDS ORDERED: ONDANSETRON ODT 4 MG TABLET TL PRN (18:23)
--- NOTE | 2020-09-29 18:28 | OPERATIVE REPORT ---
Operative Report - General Procedure Date: 09/29/20 Planned Procedure: Total vaginal hysterectomy with salpingectomy. Anterior repair with possible posterior repair. Cystoscopy. Pre-Op Diagnosis: Prolapse and pelvic pain Procedure Performed: Total vaginal hysterectomy and bilateral salpingectomy. Anterior repair Cystoscopy Post Op Diagnosis: Same - Procedure Note Primary Surgeon: Chaparrita Izaguirre MD Secondary Surgeon: Shaye Castle MD Anesthesia Provider: Filiberto Barkley CRNA Anesthesia Technique: General ET tube Pathology: Uterus with cervix and bilateral fallopian tubes. IV Fluids (mL): 1,600 Estimated Blood Loss (mL): 25 Urine Output (mL): 165 Indications: Patient is a 54 yo female with concerns for prolapse. She was seen in clinic in December 2019 for a thickened endometrium. She has undergone a hysteroscopy D&C later that month with benign pathology to follow. Her major concern at present is pelvic pain in her LLQ that feels like and pulling sensation. She has a prolapsing bladder that she refrains from pushing into the vagina. When it is pushed inwards, it can cause pain in the right lower quadrant. She has completed a pelvic us that was generally unremarkable. She does continue to have vaginal bleeding after intercourse. Her last pap smear was 05/2020. She is seeking definitive surgical management. Findings: Normal appearing uterus with moderate prolapse and 2-3rd degree cystocele. Small ovaries c/w age. Cystoscopy showed bilateral ureteral jets and normal survey of the bladder mucosa. Complications: None. Ureter was kinked on initial cystoscopy. Bilateral ureteral jets were noted after release of suture and revision of cuff closure. - Other Other Information/Narrative: Consent was again confirmed. The patient was brought to the OR and underweight general anesthesia. She was placed in dorsal lithotomy with legs supported in yellowfin stirrups. Bimanual exam was performed. She was then prepared and draped in the usual sterile fashion. Almendarez catheter was in place and backfilled with 50 cc of dilute methylene blue and clamped. SCDs were confirmed to be in place and operating. A surgical time out was performed. Administration of 2g IV cefazolin was confirmed. A weighted speculum was placed in the posterior vaginal vault. The cervix was grasped with a a double toothed tenaculum clamp on both its anterior and posterior lips. A total of 10 cc of 0.5% bupivicaine with epinephrine was injected into the uterosacral ligaments bilaterally. A total of 20 cc of 20mg vasopressin/100 cc was injected in a circumferential direction around the cervix. With downward traction, we made a circumferential incision of the vaginal epithelium at the junction of the cervix with the Bovie cautery to aid entry into the peritoneum. The overlying vaginal epithelium was dissected off the underlying cervical stroma in an combination of sharp and blunt dissection. The cervicovesical space was then created by both blunt and sharp dissection. At no point was there spillage of methylene blue. Entrance into the anterior space was completed and a right angle retractor was inserted under the bladder. The posterior cul-de-sac was entered sharply in the same manner. A long necked weighted speculum was then placed in the vagina through the posterior space. The uterosacral ligaments were clamped with Edward clamps and ligated with #0 Vicryl suture bilaterally. A moistened sponge stick was placed in the posterior cul de sac to retract the bowel and patient was placed in Trendelenburg position. A laparoscopic Ligasure bipolar device was then used to seal and ligate each pedicle. The uterosacral ligaments were suture ligated as above. The cardinal ligaments, uterine vessels, broad ligaments, and utero-ovarian pedicles were sealed and ligated with the Ligasure device. The ovaries were visualized on either side. The left fallopian tube, still attached to the uterine body, was grasped and elevated with Franco clamps. The Ligasure device was used to seal and ligate the underlying mesosalpinx, leaving the tube attached to the uterine body. This process was repeated on the right fallopian tube. The uterus with cervix and both tubes intact was removed from the field and sent to pathology. Good hemostasis was noted. Ovaries were inspected as with findings noted above. We then removed the weighted duckbill speculum and placed a regular speculum in the vaginal vault and visualized the entire area. We inspected for hemostasis, and this was secured. The peritoneum was closed with 2-0 Vicryl with a running pursestring suture. Allis clamps were then placed at the fornices of the vaginal cuff. Additional dilute vasopressin was injected under the vaginal mucosa of the anterior vaginal wall to about 1 cm below the urethral meatus. The mucosa was undermined with Metzenbaum scissors. In the space, an incision was made from the anterior aspect of the vaginal cuff, and continued until the vagina is opened to within 1 cm of the urethral meatus. The edges of the mucosa were grasped bilaterally with wide Allis clamps and held in the lateral position. The pubovesical cervical fascia was from the vaginal mucosa in a combinaiton of sharp and blunt dissection. A series of #2-0 Vicryl interrupted sutures were then placed sequentially along the lateral folds of the vesicovaginal space, plicating the pubovesical fascia, together to tuck the bladder back while simultaneously bringing the lateral vaginal tissues together. The excess vaginal mucosa was then trimmed. The vagina was then closed with a running locked #2 Vicryl suture. The uterosacral ligaments were then fixed to the anterior and posterior vaginal cuff margins to aid in vaginal support. The vaginal cuff was then closed with interrupted figure of 8 sutures using 0-Vicryl. Hemostasis was excellent. The vaginal vault was cleared of debris. The sponge count was correct times 2 at this time. A Almendarez catheter was then unclamped. The bladder was drained and the Almendarez was removed. The cystoscope was inserted and the bladder was distended with normal saline. The survey of all of the bladder surfaces was completed and was noted to be absent of suture or trauma. Ureteral jets were observed directly on the right. The left ureter showed activity but did not release a jet. The sutures of the left aspect of the vaginal cuff were released and cysoscopy was performed. Bilateral ureteral jets were now noted. The left aspect of the vaginal cuff was again closed with interrupted figure of 8 suture using 0-Vicryl. Repeat cystoscopy confirmed presence of bilateral ureteral jets. Bladder was drained and cystoscope was removed. Almendarez catheter was replaced. All instruments were removed from the vagina and good hemostasis was noted. Vaginal packing soaked with estrogen cream was placed in the vaginal vault. Sponge and needle counts were confirmed to be correct. Procedure was closed with a post-operative time out, patient extubated, and brought to the PACU in good condition. Dr. Castle assisted with retraction, assistance with suturing, cystoscopy, and sharing of surgical insight.
--- NOTE | 2020-09-29 19:36 | ANESTHESIA POST OP EVALUATION ---
Anesthesia Post Eval - Post Anesthesia Eval Vitals: Last Vital Signs Temp 36.8 C 09/29/20 19:31 Pulse 79 09/29/20 19:31 Resp 18 09/29/20 19:31 BP 100/58 L 09/29/20 19:31 Pulse Ox 95 09/29/20 19:31 CV Function Including HR & BP: positive: Stable Pain Control: positive: Satisfactory Nausea & Vomiting: positive: Negative Mental Status: positive: Baseline Respiratory Status: Airway Patent Hydration Status: Satisfactory Anesthesia Complications: positive: None
[2020-09-29] MEDS: KETOROLAC 30 MG/ML VIAL IVP SCH (19:43)
[2020-09-29] MEDS: LACTATED RINGERS 1,000 ML IV SCH (19:43)
[2020-09-29] MEDS: ACETAMINOPHEN 500 MG TABLET PO SCH (19:43)
[2020-09-29] MEDS: DOCUSATE SODIUM 100 MG CAPSULE PO SCH (20:11)
[2020-09-29] MEDS ORDERED: LACTATED RINGERS 500 ML IV ONE ×2 (21:11→22:10)
[2020-09-30] MEDS: KETOROLAC 30 MG/ML VIAL IVP SCH ×2 (00:12→06:51)
[2020-09-30] MEDS ORDERED: LACTATED RINGERS 500 ML IV ONE ×2 (02:48→03:58)
[2020-09-30 03:01] LABS: BASOPHILS % (AUTO) 0.2 %; EOSINOPHILS % (AUTO) 0.1 %; HGB - HEMOGLOBIN 11.1 g/dL (12.0-16.0); MEAN CORPUSCULAR HEMOGLOBIN 29.8 pg (27.0-31.0); MEAN CORPUSCULAR HGB CONC 31.7 g/dL (32.0-36.0); MEAN CORPUSCULAR VOLUME 93.8 fL (81.0-99.0); MONOCYTES # (AUTO) 0.7 10^3/uL (0.0-1.0); MONOCYTES % (AUTO) 5.2 %; NEUTROPHILS # (AUTO) 12.1 10^3/uL (1.5-6.6); NEUTROPHILS % (AUTO) 87.2 %; PLT - PLATELET COUNT 266 10^3/uL (130-450); RED BLOOD COUNT 3.73 10^6/uL (4.20-5.40); RED CELL DISTRIBUTION WIDTH 12.1 % (12.0-15.0); WHITE BLOOD COUNT 13.9 x10^3/uL (4.8-10.8)
[2020-09-30] MEDS: ACETAMINOPHEN 500 MG TABLET PO SCH ×2 (03:06→10:50)
[2020-09-30] MEDS: DOCUSATE SODIUM 100 MG CAPSULE PO SCH (08:12)
[2020-09-30] MEDS: LACTATED RINGERS 1,000 ML IV SCH (08:13)
[2020-09-30 08:29] VITALS: BP 84/55
--- NOTE | 2020-09-30 08:59 | PROVIDER PROGRESS NOTE ---
Subjective - Prog Note Date Prog Note Date: 09/30/20 Prog Note Time: 07:30 - Subjective Subjective: Patient has not been up and ambulating. Tolerating po. Almendarez remain in place and patient is not yet voiding. UOP has been excellent. Pain is well managed with pain medications. Vag packing in place. Objective - Vital Signs/Intake & Output Reviewed Vital Signs: Yes Vital Signs: Vital Signs x48h Temp Pulse Resp BP Pulse Ox 09/30/20 08:28 98.1 F 65 20 84/55 L 97 09/30/20 07:04 74 18 104/57 L 09/30/20 06:58 98.2 F 52 L 16 88/44 L 96 09/30/20 03:45 52 L 83/53 L 09/30/20 02:38 97.3 F L 55 L 18 87/54 L 94 09/30/20 01:26 97.3 F L 54 L 16 82/52 L 95 Intake & Output: Intake & Output 09/27/20 09/28/20 09/29/20 09/30/20 23:59 23:59 23:59 23:59 Intake Total 2186.666 2803.334 Output Total 705 2950 Balance 1481.666 -146.666 - Objective General Appearance: positive: No acute distress Respiratory: positive: No respiratory distress Cardiovascular: positive: Other (RR; bradycardic but asymptomatic overnight) Abdomen: positive: Non-tender, No distention, Other (soft) Skin: positive: Color nml Extremities: positive: Non-tender, No pedal edema Neurologic/Psychiatric: positive: Oriented x3 - Lab Results Fish Bones: 09/30/20 02:55 Other Labs: Lab Results x24hrs 09/30/20 09/29/20 Range/Units 02:55 10:24 WBC 13.9 H (4.8-10.8) x10^3/uL RBC 3.73 L (4.20-5.40) 10^6/uL Hgb 11.1 L (12.0-16.0) g/dL Hct 35.0 L (37.0-47.0) % MCV 93.8 (81.0-99.0) fL MCH 29.8 (27.0-31.0) pg MCHC 31.7 L (32.0-36.0) g/dL RDW 12.1 (12.0-15.0) % Plt Count 266 (130-450) 10^3/uL MPV 10.0 (7.9-10.8) fL Neut # (Auto) 12.1 H (1.5-6.6) 10^3/uL Lymph # (Auto) 1.0 L (1.5-3.5) 10^3/uL Cassia # (Auto) 0.7 (0.0-1.0) 10^3/uL Eos # (Auto) 0.0 (0.0-0.7) 10^3/uL Baso # (Auto) 0.0 (0.0-0.1) 10^3/uL Absolute Nucleated RBC 0.00 x10^3/uL Nucleated RBC % 0.0 /100WBC POC Whole Bld Glucose 97 (70 - 100) mg/dL - Other Results/Comments Other Results/Comments: Vaginal packing removed with minimal staining Assessment/Plan - Problem List (1) Status post vaginal hysterectomy Impression: POD#1 s/p TVH and anterior repair Tolerating po and pain well managed Must ambulate this am Almendarez to be removed and voiding trial remaining OK to discharge once voids and PVR is less than 50% DC instructions given Meds sent to [facility]
[2020-09-30] MEDS ORDERED: ENOXAPARIN 40 MG/0.4 ML SYRINGE SUBQ SCH (09:00)
== END 2020-09-30 12:27 | disposition home or self-care (01) ==
LOC: SDS 09:48 → MS2 19:23 → SDS 09-30 12:27
PROVIDERS: ATTEND Obstetrics & Gynecology
PROC: 0UT77ZZ Resection of Bilateral Fallopian Tubes, Via Natural or Artificial Opening (ICD-10-PCS; 2020-09-29)
PROC: 0JQC0ZZ Repair Pelvic Region Subcutaneous Tissue and Fascia, Open Approach (ICD-10-PCS; principal; 2020-09-29 11:15)
PROC: 0UT97ZZ Resection of Uterus, Via Natural or Artificial Opening (ICD-10-PCS; 2020-09-29 11:15)
DX: N81.2 Incomplete uterovaginal prolapse (principal); R10.2 Pelvic and perineal pain; N93.0 Postcoital and contact bleeding
CPT/HCPCS: 36415; 57240; 58262; 85025; A9270; J0131; J0690; J1170; J1650; J3490; J7120

== ENCOUNTER 2020-11-01 17:38 | Outpatient (CLI) | payer OTHER | END 2020-11-01 17:39 | disposition home or self-care (01) | LOC: COV 17:38 | PROVIDERS: ATTEND Surgery | DX: Z01.812 Encounter for preprocedural laboratory examination (principal); R12 Heartburn; R13.10 Dysphagia, unspecified; Z87.19 Personal history of other diseases of the digestive system; Z20.822 Contact with and (suspected) exposure to COVID-19 ==

== ENCOUNTER 2020-11-05 07:16 | Day surgery (SDC) | payer OTHER ==
[2020-11-05] MEDS ORDERED: LACTATED RINGERS 1,000 ML IV ONE ×2 (07:37→08:54)
[2020-11-05] MEDS ORDERED: LIDO GARGLE 30 ML BOTTLE ONE (07:46)
[2020-11-05] MEDS ORDERED: BENZOCAINE/TETRACAINE/BUTAMBEN 20 GM TOP ONE ×2 (08:13→08:31)
[2020-11-05] MEDS ORDERED: LIDO GARGLE 30 ML BOTTLE PO ONE ×2 (08:13→08:31)
[2020-11-05] MEDS ORDERED: MIDAZOLAM 2 MG/2 ML VIAL ONE ×2 (08:23→08:44)
[2020-11-05] MEDS ORDERED: fentaNYL 100 MCG/2 ML VIAL ONE (08:24)
[2020-11-05] MEDS ORDERED: ONDANSETRON 4 MG/2 ML VIAL ONE (08:24)
[2020-11-05 09:18] VITALS: BP 93/73
== END 2020-11-05 07:17 | disposition home or self-care (01) ==
LOC: SDS 07:16
PROVIDERS: ATTEND Surgery
PROC: 0DB68ZX Excision of Stomach, Via Natural or Artificial Opening Endoscopic, Diagnostic (ICD-10-PCS; principal; 2020-11-05 08:30)
DX: K21.00 Gastro-esophageal reflux disease with esophagitis, without bleeding (principal); Z87.19 Personal history of other diseases of the digestive system
CPT/HCPCS: 43239; 87081; A9270; J7120

== ENCOUNTER 2020-12-30 08:00 | Outpatient (CLI) | payer OTHER ==
[2020-12-30 17:36] LABS: BILIRUBIN,URINE NEGATIVE (NEGATIVE); GLUCOSE, URINE (UA) NEGATIVE (NEGATIVE); KETONES,URINE (UA) NEGATIVE (NEGATIVE); LEUKOCYTE ESTERASE, URINE SMALL (NEGATIVE); NITRITE,URINE POSITIVE (NEGATIVE); OCCULT BLOOD,URINE NEGATIVE (NEGATIVE); PROTEIN,URINE NEGATIVE (NEGATIVE); UROBILINOGEN,URINE 0.2 (NORMAL) E.U./dL (NORMAL)
[2020-12-30 17:44] LABS: CLARITY,URINE CLEAR (CLEAR); RBC,URINE 0-5 /HPF (0-5); SQUAMOUS EPITHELIAL CELL,UR FEW Squamous (<= Few)
[2020-12-30 17:45] LABS: BACTERIA,URINE Many /HPF (None Seen)
== END 2020-12-30 23:59 | disposition home or self-care (01) ==
LOC: LAB.R 08:00
PROVIDERS: ATTEND Obstetrics & Gynecology
DX: R30.0 Dysuria (principal)
CPT/HCPCS: 81001; 87086; 87181

== ENCOUNTER 2021-06-22 10:20 | Outpatient (CLI) | payer OTHER ==
--- NOTE | 2021-06-23 13:22 | Mammography Report ---
BILATERAL DIGITAL SCREENING MAMMOGRAM 3D/2D: 06/22/2021 CLINICAL: Routine screening. Comparison is made to exams dated: 06/21/2020 mammogram, 03/14/2019 mammogram, 01/30/2018 mammogram, an d 12/28/2016 mammogram - [facility] with [facility]. There are scattered fibroglandular elements in both breasts. No significant masses, calcifications, or other findings are seen in either breast. There has been no significant interval change. IMPRESSION: NEGATIVE There is no mammographic evidence of malignancy. A 1 year screening mammogram is recommended. This exam was interpreted at Station ID: [id number]. NOTE: For mammograms, a report in lay terms will be sent to the patient. Approximately 15% of breast malignancies will not be visualized mammographically. In the management of a palpable breast mass, a negative mammogram must not discourage biopsy of a clinically suspicious lesion. Electronically Signed By: Angie maharaj/penrad:06/22/2021 13:38:42 ACR BI-RADS Category 1: Negative 3341F PARENCHYMAL PATTERN: (A) - The breast(s) demonstrate(s) scattered fibroglandular densities. BI-RADS CATEGORY: (1) - 1 RECOMMENDATION: (ANNUAL) - Recommend routine annual screening mammography. [id number] 1 year screening LATERALITY: (B)
== END 2021-06-22 10:21 | disposition home or self-care (01) ==
LOC: DI.N 10:20
DX: Z12.31 Encounter for screening mammogram for malignant neoplasm of breast (principal)

== ENCOUNTER 2021-07-01 07:42 | Outpatient (CLI) | payer OTHER ==
[2021-07-01 11:59] LABS: BASOPHILS % (AUTO) 0.6 %; EOSINOPHILS # (AUTO) 0.3 10^3/uL (0.0-0.7); EOSINOPHILS % (AUTO) 4.2 %; HCT - HEMATOCRIT 42.9 % (37.0-47.0); HGB - HEMOGLOBIN 13.9 g/dL (12.0-16.0); LYMPHOCYTES # (AUTO) 1.6 10^3/uL (1.5-3.5); LYMPHOCYTES % (AUTO) 23.6 %; MEAN CORPUSCULAR HGB CONC 32.4 g/dL (32.0-36.0); MEAN CORPUSCULAR VOLUME 92.5 fL (81.0-99.0); MONOCYTES # (AUTO) 0.5 10^3/uL (0.0-1.0); MONOCYTES % (AUTO) 7.9 %; NEUTROPHILS # (AUTO) 4.2 10^3/uL (1.5-6.6); NEUTROPHILS % (AUTO) 63.4 %; PLT - PLATELET COUNT 353 10^3/uL (130-450); RED BLOOD COUNT 4.64 10^6/uL (4.20-5.40); RED CELL DISTRIBUTION WIDTH 12.1 % (12.0-15.0); WHITE BLOOD COUNT 6.6 x10^3/uL (4.8-10.8)
[2021-07-01 14:10] LABS: ALBUMIN 3.9 g/dL (3.2-5.5); ALBUMIN/GLOBULIN RATIO 1.1 (1.0-2.2); ALKALINE PHOSPHATASE 60 IU/L (42-121); ALT ALANINE AMINOTRANSFERASE 24 IU/L (10-60); AST ASPARTATE AMINOTRANSFERASE 19 IU/L (10-42); BILIRUBIN,TOTAL 0.7 mg/dL (0.2-1.0); BUN - BLOOD UREA NITROGEN 19 mg/dL (6-20); CALCIUM 9.7 mg/dL (8.5-10.3); CARBON DIOXIDE - CO2 26 mmol/L (21-32); CHLORIDE 105 mmol/L (101-111); CHOL/HDL RATIO 4.9 (<4.4); CHOLESTEROL 270 mg/dL; CREATININE 0.9 mg/dL (0.4-1.0); GFR - MDRD 64 (>89); GLUCOSE 136 mg/dL (70-100); HDL CHOLESTEROL 55 mg/dL; LDL CHOLESTEROL,CALCULATED 174 mg/dL; LDL/HDL RATIO 3.2 (<4.4); POTASSIUM 4.4 mmol/L (3.5-5.0); SODIUM 142 mmol/L (135-145); TOTAL PROTEIN 7.4 g/dL (6.7-8.2); TRIGLYCERIDES 206 mg/dL; VLDL CHOLESTEROL 41 mg/dL
[2021-07-01 14:11] LABS: THYROID STIMULATING HORMONE 0.54 uIU/mL (0.34-5.60)
[2021-07-02 11:27] LABS: HEPATITIS C ANTIBODY NON-REACTIVE (NON-REACTIVE)
== END 2021-07-01 23:59 | disposition home or self-care (01) ==
LOC: LAB.WCP 07:42
PROVIDERS: ATTEND Physician Assistant Medical
DX: Z00.00 Encounter for general adult medical examination without abnormal findings (principal); E78.5 Hyperlipidemia, unspecified; E06.3 Autoimmune thyroiditis
CPT/HCPCS: 36415; 80053; 80061; 83721; 84443; 85025; 86803

== ENCOUNTER 2021-07-08 14:03 | Outpatient (CLI) | payer OTHER ==
[2021-07-08 20:46] LABS: ESTIMATED AVERAGE GLUCOSE 126 mg/dL (70-100)
== END 2021-07-08 23:59 | disposition home or self-care (01) ==
LOC: LAB.WCP 14:03
PROVIDERS: ATTEND Physician Assistant Medical
DX: R73.03 Prediabetes (principal); R53.83 Other fatigue
CPT/HCPCS: 36415; 82306; 82607; 83036

== ENCOUNTER 2021-07-13 15:16 | Outpatient (CLI) | payer OTHER ==
--- NOTE | 2021-07-13 16:32 | Ultrasound Report ---
PROCEDURE: Head or Neck Soft Tissue INDICATIONS: THYROID NODULE, POST MENOPAUSAL TECHNIQUE: Real-time scanning was performed of the thyroid gland, with image documentation. COMPARISON: None FINDINGS: Right: Thyroid lobe measures 4.6 x 1.6 x 1.5 cm, and is homogeneous in echotexture. Left: Thyroid lobe measures 4.2 x 1.2 x 1.6 cm, and is homogenous in echotexture. Isthmus: 4 mm thick. Nodule number: One Location: Right posterior Size: 0.6 x 0.5 x 0.5 cm compared to prior of 0.6 x 0.6 x 0.4 cm. Composition: Solid Echogenicity: Hypoechoic Shape: wider than tall. Margins: Lobulated Echogenic foci: None Total points: 4 ACR TI-RADS category: 4 Nodule number: Two Location: Right superior Size: 0.6 x 0.5 x 0.4 cm. Composition: Solid Echogenicity: Hypoechoic Shape: wider than tall. Margins: Lobulated Echogenic foci: None Total points: 4 ACR TI-RADS category: Or Nodule number: Three Location: Right medial Size: 0.7 x 0.7 x 0.4 cm compared to 0.4 x 0.4 x 0.3 cm. Composition: Solid Echogenicity: Hypoechoic Shape: wider than tall. Margins: Left Echogenic foci: Macrocalcification Total points: 5 ACR TI-RADS category: 4 Nodule number: Four Location: Left superior Size: 0.7 x 0.6 x 0.3 compared to 0.9 x 0.3 x 0.4 cm. Composition: Solid Echogenicity: Hypoechoic Shape: wider than tall. Margins: Lobulated Echogenic foci: None Total points: 4 ACR TI-RADS category: 4 Nodule number: Four Location: Left mid Size: 0.8 x 0.7 x 0.5 cm compared to 0.7 x 0.6 x 0.3 cm. Composition: ? Echogenicity: Hypoechoic Shape: wider than tall. Margins: Lobulated Echogenic foci: Macrocalcifications Total points: By ACR TI-RADS category: 4 IMPRESSION: 1. Lesions 1, 3, 4 and 5 are unchanged. There considered category 4 and secondary to small size no ad ditional follow-up is recommended. 2. Lesion 2 is a category 4. However, secondary to size, no additional follow-up is recommended. ACR TI-RADS definitions and recommendations: TI-RADS 1 (benign): 0 points. FNA not needed. TI-RADS 2 (not suspicious): 2 points. FNA not needed. TI-RADS 3 (mildly suspicious): 3 points. ? FNA if 2.5 cm or larger, follow up if 1.5 cm or larger (at 1, 3, and 5 years). TI-RADS 4 (moderately suspicious): 4-6 points. ? FNA if 1.5 cm or larger, follow up if 1 cm or larger (at 1, 2, 3, and 5 years). TI-RADS 5 (highly suspicious): 7 points or more. ? FNA if 1 cm or larger, follow up if 0.5 cm or larger (every year for 5 years). Reviewed by: Juana Sanchez MD on 07/13/2021 4:30 PM PDT Approved by: Juana Sanchez MD on 07/13/2021 4:30 PM PDT Station ID: [id number]
--- NOTE | 2021-07-13 16:48 | DEXA Report ---
PROCEDURE: Dexa Spine and/or Hip INDICATIONS: THYROID NODULE, POST MENOPAUSAL TECHNIQUE: Dual energy x-ray absorptiometry (DXA) was performed on a iYogi System. Regions measur ed are the AP Spine, femoral neck, and if needed forearm. COMPARISON: None. FINDINGS: Lumbar Spine: Bone Mineral Density 0.947 g/cm/cm,T score -1.9, osteopenia Left Femoral Neck: Bone Mineral Density 0.811 g/cm/cm, T score -1.6, osteopenia (T score greater or equal to -1.0: NORMAL) (T score from -1.1 to -2.4: OSTEOPENIA) (T score less than or equal to -2.5 to: OSTEOPOROSIS) Impression: Osteopenia. Patient is at increased risk for fracture. Patients with diagnosis of osteoporosis or osteopenia should have regular bone mineral density assess ment. For those eligible for Medicare, routine testing is allowed once every 2 years. Testing frequ ency can be increased for patients who have rapidly progressing disease or for those who are receivin g medical therapy to restore bone mass. Reviewed by: Manuelito See MD on 07/13/2021 4:47 PM PDT Approved by: Manuelito See MD on 07/13/2021 4:47 PM PDT Station ID: [id number]
== END 2021-07-13 15:17 | disposition home or self-care (01) ==
LOC: DI 15:16
PROVIDERS: ATTEND Physician Assistant Medical
DX: E04.2 Nontoxic multinodular goiter (principal); M85.89 Other specified disorders of bone density and structure, multiple sites; Z78.0 Asymptomatic menopausal state

== ENCOUNTER 2022-03-14 11:10 | Outpatient (CLI) | payer OTHER | END 2022-03-14 23:59 | disposition home or self-care (01) | LOC: LAB 11:10 | PROVIDERS: ATTEND Physician Assistant Medical | DX: J01.90 Acute sinusitis, unspecified (principal); Z20.822 Contact with and (suspected) exposure to COVID-19 ==

== ENCOUNTER 2022-07-25 11:06 | Outpatient (CLI) | payer OTHER ==
--- NOTE | 2022-07-26 10:15 | Mammography Report ---
BILATERAL DIGITAL SCREENING MAMMOGRAM 3D/2D: 07/25/2022 CLINICAL: Routine screening. Comparison is made to exams dated: 06/22/2021 mammogram, 06/21/2020 mammogram, 03/14/2019 mammogram, 01/20 mammogram, 12/28/2016 mammogram, and 10/25/2015 mammogram - [facility]. There are scattered areas of fibroglandular density in both breasts (category b / 25%-50% glandular t issue). No significant masses, calcifications, or other findings are seen in either breast. There has been no significant interval change. IMPRESSION: NEGATIVE There is no mammographic evidence of malignancy. A 1 year screening mammogram is recommended. Based on the Tyrer Cuzick model (a risk assessment model) the patients lifetime risk is 6.6% and her 10 year risk is 2.5%. According to the ACR, ACS, and NCCN guidelines, an annual breast MRI exam shelley g with mammogram is recommended if the patients lifetime risk is 20% or greater. This exam was interpreted at Station ID: [id number]. NOTE: For mammograms, a report in lay terms will be sent to the patient. Approximately 15% of breast malignancies will not be visualized mammographically. In the management of a palpable breast mass, a negative mammogram must not discourage biopsy of a clinically suspicious lesion. Electronically Signed By: Manuelito brooks/mellissa:07/25/2022 17:37:45 ACR BI-RADS Category 1: Negative 3341F PARENCHYMAL PATTERN: (A) - The breast(s) demonstrate(s) scattered fibroglandular densities. BI-RADS CATEGORY: (1) - 1 RECOMMENDATION: (ANNUAL) - Recommend routine annual screening mammography. [id number] 1 year screening LATERALITY: (B)
== END 2022-07-25 11:07 | disposition home or self-care (01) ==
LOC: DI.N 11:06
DX: Z12.31 Encounter for screening mammogram for malignant neoplasm of breast (principal)

== ENCOUNTER 2023-08-21 15:29 | Outpatient (CLI) | payer BC, OTHER ==
--- NOTE | 2023-08-23 16:06 | Mammography Report ---
BILATERAL DIGITAL SCREENING MAMMOGRAM 3D/2D: 08/21/2023 CLINICAL: Routine screening. Comparison is made to exams dated: 07/25/2022 mammogram, 06/22/2021 mammogram, 06/21/2020 mammogram, 02/20 mammogram, 01/30/2018 mammogram, and 12/28/2016 mammogram - [facility]. There are scattered areas of fibroglandular density in both breasts (category b / 25%-50% glandular t issue). There are multiple round and oval masses with circumscribed margins seen in both breasts. No significant masses, calcifications, or other findings are seen in either breast. IMPRESSION: BENIGN There are multiple, bilateral, round and oval benign appearing masses. No mammographic evidence of m alignancy. A 1 year screening mammogram is recommended. Based on the Tyrer Cuzick model (a risk assessment model) the patients lifetime risk is 6.5% and her 10 year risk is 2.6%. According to the ACR, ACS, and NCCN guidelines, an annual breast MRI exam shelley g with mammogram is recommended if the patients lifetime risk is 20% or greater. This exam was interpreted at Station ID: [id number]. NOTE: For mammograms, a report in lay terms will be sent to the patient. Approximately 15% of breast malignancies will not be visualized mammographically. In the management of a palpable breast mass, a negative mammogram must not discourage biopsy of a clinically suspicious lesion. Electronically Signed By: Jany Lugo M.D., PH.D eb/:08/23/2023 00:48:08 letter sent: No_Letter ACR BI-RADS Category 2: Benign Finding(s) 3342F PARENCHYMAL PATTERN: (A) - The breast(s) demonstrate(s) scattered fibroglandular densities. BI-RADS CATEGORY: (2) - 2 Mammogram [id number] 1 year screening LATERALITY: (B)
== END 2023-08-21 15:30 | disposition home or self-care (01) ==
LOC: DI.N 15:29
DX: Z12.31 Encounter for screening mammogram for malignant neoplasm of breast (principal); R92.323 Mammographic fibroglandular density, bilateral breasts

== ENCOUNTER 2023-10-12 07:35 | Outpatient (CLI) | payer BC, OTHER ==
[2023-10-12 12:32] LABS: BASOPHILS % (AUTO) 0.5 %; EOSINOPHILS # (AUTO) 0.3 10^3/uL (0.0-0.7); EOSINOPHILS % (AUTO) 3.8 %; HCT - HEMATOCRIT 42.8 % (37.0-47.0); HGB - HEMOGLOBIN 13.6 g/dL (12.0-16.0); LYMPHOCYTES # (AUTO) 1.7 10^3/uL (1.5-3.5); LYMPHOCYTES % (AUTO) 21.9 %; MEAN CORPUSCULAR HEMOGLOBIN 29.1 pg (27.0-31.0); MEAN CORPUSCULAR HGB CONC 31.8 g/dL (32.0-36.0); MEAN CORPUSCULAR VOLUME 91.6 fL (81.0-99.0); MEAN PLATELET VOLUME 10.1 fL (7.9-10.8); MONOCYTES # (AUTO) 0.6 10^3/uL (0.0-1.0); MONOCYTES % (AUTO) 7.8 %; NEUTROPHILS % (AUTO) 65.7 %; PLT - PLATELET COUNT 400 10^3/uL (130-450); RED BLOOD COUNT 4.67 10^6/uL (4.20-5.40); RED CELL DISTRIBUTION WIDTH 12.5 % (12.0-15.0); WHITE BLOOD COUNT 7.6 x10^3/uL (4.8-10.8)
[2023-10-12 13:28] LABS: ALBUMIN 4.3 g/dL (3.2-5.5); ALBUMIN/GLOBULIN RATIO 1.5 (1.0-2.2); ALKALINE PHOSPHATASE 70 IU/L (42-121); ALT ALANINE AMINOTRANSFERASE 16 IU/L (10-60); AST ASPARTATE AMINOTRANSFERASE 12 IU/L (10-42); BILIRUBIN,TOTAL 0.5 mg/dL (0.2-1.0); BUN - BLOOD UREA NITROGEN 15 mg/dL (6-20); CALCIUM 9.8 mg/dL (8.5-10.3); CARBON DIOXIDE - CO2 24 mmol/L (21-32); CHLORIDE 106 mmol/L (101-111); CHOL/HDL RATIO 4.3 (<4.4); CHOLESTEROL 239 mg/dL; CREATININE 0.8 mg/dL (0.6-1.3); GFR - MDRD 73 (>89); GLUCOSE 150 mg/dL (74-104); HDL CHOLESTEROL 55 mg/dL; LDL CHOLESTEROL,CALCULATED 147 mg/dL; LDL/HDL RATIO 2.7 (<4.4); SODIUM 138 mmol/L (135-145); TOTAL PROTEIN 7.1 g/dL (6.4-8.9); TRIGLYCERIDES 183 mg/dL (48-352); VLDL CHOLESTEROL 37 mg/dL
[2023-10-12 13:36] LABS: THYROID STIMULATING HORMONE 0.66 uIU/mL (0.34-5.60)
[2023-10-16 10:45] LABS: ESTIMATED AVERAGE GLUCOSE 126 mg/dL (70-100)
== END 2023-10-12 07:36 | disposition home or self-care (01) ==
LOC: LAB.N 07:35
PROVIDERS: ATTEND Physician Assistant Medical
DX: Z00.00 Encounter for general adult medical examination without abnormal findings (principal)
CPT/HCPCS: 36415; 80053; 80061; 83036; 83721; 84443; 85025

== ENCOUNTER 2024-04-15 08:00 | Outpatient (CLI) | payer BC, OTHER ==
[2024-04-15 18:18] LABS: ALBUMIN 4.2 g/dL (3.2-5.5); ALBUMIN/GLOBULIN RATIO 1.4 (1.0-2.2); BILIRUBIN,TOTAL 0.4 mg/dL (0.2-1.0); CALCIUM 9.8 mg/dL (8.5-10.3); CREATININE 0.8 mg/dL (0.6-1.3); TOTAL PROTEIN 7.1 g/dL (6.4-8.9)
[2024-04-15 20:36] LABS: ESTIMATED AVERAGE GLUCOSE 128 mg/dL (70-100); HEMOGLOBIN A1c% 6.1 % (4.27-6.07)
== END 2024-04-15 23:59 | disposition home or self-care (01) ==
LOC: LAB.N 08:00
PROVIDERS: ATTEND Physician Assistant Medical
DX: R73.03 Prediabetes (principal)
CPT/HCPCS: 36415; 80053; 83036

== ENCOUNTER 2024-04-15 12:30 | Outpatient (CLI) | payer BC, OTHER | END 2024-04-15 12:31 | disposition home or self-care (01) | LOC: LAB.N 12:30 | PROVIDERS: ATTEND Physician Assistant Medical | DX: Z53.9 Procedure and treatment not carried out, unspecified reason (principal) | CPT/HCPCS: 36415; 80053; 83036 ==